=== PATIENT | female | born 1935 | race Two or more races ===

== ENCOUNTER 2019-08-03 12:00 | Inpatient (IN) | payer OTHER ==
[~2019-08-03] VITALS: Ht 152.4 cm; Wt 72.6 kg
[2019-08-05] MEDS ORDERED: LEVO-T112 MCG PO (09:35)
[2019-08-05] MEDS ORDERED: LOSARTAN POTAS100 MG PO (09:35)
[2019-08-05] MEDS ORDERED: ATORVASTATIN CA40 MG PO (09:36)
[2019-08-05] MEDS ORDERED: NORVASC10 MG PO (09:36)
[2019-08-05] MEDS ORDERED: ELIQUIS5 MG PO (09:37)
== END 2019-08-10 18:20 | disposition home or self-care (01) | DRG 470 ==
LOC: O/R 08-08 06:42 → SURG 08-08 06:42
PROVIDERS: ADMIT Orthopaedic Surgery
PROC: 0SRD0J9 Replacement of Left Knee Joint with Synthetic Substitute, Cemented, Open Approach (ICD-10-PCS; principal; 2019-08-08 08:30)
DX: M17.12 Unilateral primary osteoarthritis, left knee (principal); I10 Essential (primary) hypertension; E03.8 Other specified hypothyroidism; E78.49 Other hyperlipidemia

== ENCOUNTER 2019-09-02 10:40 | Outpatient (CLI) | payer OTHER ==
[~2019-09-02 10:40] MED LIST: ATORVASTATIN CA40 MG PO; ELIQUIS5 MG PO; LEVO-T112 MCG PO; LOSARTAN POTAS100 MG PO; NORVASC10 MG PO
== END 2019-09-02 10:48 | disposition home or self-care (01) ==
LOC: NUCLEAR 10:40
DX: I87.2 Venous insufficiency (chronic) (peripheral) (principal); M79.605 Pain in left leg